=== PATIENT | male | born 1980 | race Two or more races ===

== ENCOUNTER 2018-03-14 20:02 | Inpatient (IN) | payer OTHER ==
[~2018-03-14] VITALS: Ht 185.4 cm; Wt 101.0 kg
[2018-03-14] MEDS ORDERED: ETOMIDATE (2MG/ML) 20ML VIAL IV ONE (20:30)
[2018-03-14] MEDS ORDERED: LIDOCAINE 1% (LOCAL ANESTH.) PF 5ml SDV ID ONE (21:00)
[2018-03-14] MEDS ORDERED: NEOMYCIN-BACITRACIN-POLYM UNITDOSE PKG TOP OINT TOP ONE (21:00)
[2018-03-14] MEDS ORDERED: ONDANSETRON HCL 4 MG/2 ML VIAL IV ONE ×2 (21:15→23:30)
[2018-03-14] MEDS ORDERED: HYDROmorphone HCL 2 MG/ML VL IV ONE ×2 (21:15→23:30)
[2018-03-14 22:16] LABS: Basophils # (auto) 0 uL; Basophils % (auto) 0.1 % (0.0-2.0); Eosinophils # (auto) 0 uL; Hematocrit 42.7 % (41.0-53.0); Hemoglobin 14.5 g/dL (13.5-17.5); Lymphocytes # (auto) 0.7 uL; Lymphocytes % (auto) 5.2 % (10.0-50.0); Mean Corpuscular Hemoglobin 31.9 pg (28.0-32.0); Mean Corpuscular Volume 93.9 fL (80.0-100.0); Monocytes # (auto) 0.8 uL; Monocytes % (auto) 5.9 % (0.0-12.0); Neutrophils # (auto) 12.7 uL; Neutrophils % (auto) 88.8 % (37.0-80.0); Platelet Count (auto) 236 10^3/uL (140-450); Red Blood Cells 4.54 10^6/uL (4.5-5.90); Red Cell Distribution Width 12.9 % (11.8-14.3); White Blood Cell 14.3 10^3/uL (4.4-10.8)
[2018-03-14 22:32] LABS: INR 0.99 (0.9-1.15); Prothrombin Time 10.6 sec (9.27-12.13)
[2018-03-14 22:33] LABS: BUN/Creatinine Ratio 9.3; Calcium 8.3 mg/dL (8.5-10.1); Potassium 3.8 mmol/L (3.5-5.1)
[2018-03-15] MEDS ORDERED: ACETAMINOPHEN 500 MG TAB PO PRN (01:30)
[2018-03-15] MEDS ORDERED: ONDANSETRON HCL 4 MG/2 ML VIAL IV PRN (01:30)
[2018-03-15 02:11] VITALS: BP 124/73
[2018-03-15] MEDS: MORPHINE SULFATE 4 MG/ML SYR/VIAL IV PRN ×3 (02:26→10:39)
[2018-03-15] MEDS ORDERED: HYDR-4683 PO (03:15)
[2018-03-15] MEDS: HYDROcodone-ACET 5/325MG TAB PO PRN ×5 (04:16→23:37)
[2018-03-15 05:00] VITALS: BP 124/73
[2018-03-15 07:43] LABS: Urine Bacteria NONE SEEN /hpf (None Seen); Urine Blood Negative /uL (Negative); Urine Hyaline Cast FEW /lpf (0 - 2); Urine Mucus FEW (None Seen); Urine Specific Gravity 1.024 (1.001-1.035); Urine WBC 3 /hpf (0 - 3)
[2018-03-15 07:57] LABS: Amphetamine Screen, Urine POSITIVE (NEGATIVE); Barbiturate Scree,Urine NEGATIVE (NEGATIVE); Benzodiazephine Screen, Urine NEGATIVE (NEGATIVE); Cannabinoid Screen, Urine NEGATIVE (NEGATIVE); Cocaine Screen, Urine NEGATIVE (NEGATIVE); Opiate Scree,Urine POSITIVE (NEGATIVE); Phencyclidine Screen, Urine NEGATIVE (NEGATIVE)
[2018-03-15 08:39] LABS: Basophils # (auto) 0 uL; Basophils % (auto) 0.1 % (0.0-2.0); Eosinophils # (auto) 0 uL; Eosinophils % (auto) 0.2 % (0.0-7.0); Hematocrit 37.6 % (41.0-53.0); Lymphocytes # (auto) 0.8 uL; Lymphocytes % (auto) 11.4 % (10.0-50.0); Mean Corpuscular Hemoglobin 32.5 pg (28.0-32.0); Mean Corpuscular Hgb Conc. 34.5 g/dL (32.0-36.0); Mean Corpuscular Volume 94.2 fL (80.0-100.0); Monocytes # (auto) 0.9 uL; Monocytes % (auto) 12.4 % (0.0-12.0); Neutrophils # (auto) 5.4 uL; Neutrophils % (auto) 75.9 % (37.0-80.0); Platelet Count (auto) 183 10^3/uL (140-450); Red Blood Cells 3.99 10^6/uL (4.5-5.90); Red Cell Distribution Width 12.9 % (11.8-14.3); White Blood Cell 7.1 10^3/uL (4.4-10.8)
[2018-03-15 08:59] LABS: BUN/Creatinine Ratio 13.5; Potassium 4.2 mmol/L (3.5-5.1)
[2018-03-15 09:00] VITALS: BP 128/80
[2018-03-15] MEDS: D5W/SOD CHL 0.45%/KCL 20MEQ 1,000 ML IV SCH ×2 (12:30→21:26)
[2018-03-15] MEDS: HYDROmorphone HCL 2 MG/ML VL IV PRN ×3 (12:48→21:22)
[2018-03-15 13:00] VITALS: BP 134/79
[2018-03-15] MEDS: ceFAZolin 1GM/50ML 50 ML IV SCH ×2 (14:00→21:26)
[2018-03-15 17:00] VITALS: BP 127/85
[2018-03-15 22:00] VITALS: BP 135/84
[2018-03-16] MEDS: HYDROmorphone HCL 2 MG/ML VL IV PRN ×7 (01:31→21:57)
[2018-03-16] MEDS: HYDROcodone-ACET 5/325MG TAB PO PRN ×2 (03:46→08:40)
[2018-03-16 04:50] VITALS: BP 144/82
[2018-03-16] MEDS: ceFAZolin 1GM/50ML 50 ML IV SCH ×3 (07:20→22:01)
[2018-03-16] MEDS: D5W/SOD CHL 0.45%/KCL 20MEQ 1,000 ML IV SCH ×2 (08:30→18:09)
[2018-03-16 09:00] VITALS: BP 131/87
[2018-03-16] MEDS ORDERED: HYDROcodone-ACET 10/325MG TAB PO ONE (10:00)
[2018-03-16] MEDS: HYDROcodone-ACET 10/325MG TAB PO PRN ×3 (12:15→19:53)
[2018-03-16 13:00] VITALS: BP 147/87
[2018-03-16 17:00] VITALS: BP 139/78
[2018-03-16 22:00] VITALS: BP 136/83
[2018-03-17] MEDS: HYDROcodone-ACET 10/325MG TAB PO PRN ×5 (00:24→19:00)
[2018-03-17] MEDS: HYDROmorphone HCL 2 MG/ML VL IV PRN ×4 (02:09→17:38)
[2018-03-17] MEDS: D5W/SOD CHL 0.45%/KCL 20MEQ 1,000 ML IV SCH ×2 (02:28→06:10)
[2018-03-17 05:27] VITALS: BP 151/91
[2018-03-17] MEDS: ceFAZolin 1GM/50ML 50 ML IV SCH ×2 (05:53→14:15)
[2018-03-17 09:00] VITALS: BP 133/85
[2018-03-17] MEDS ORDERED: DOCUSATE SOD 100 MG CAP PO PRN (10:30)
[2018-03-17 13:00] VITALS: BP 136/86
[2018-03-17 17:00] VITALS: BP 119/82
[2018-03-17 18:03] VITALS: BP 119/82
== END 2018-03-17 20:00 | disposition short-term general hospital (02) | DRG 342 ==
LOC: ER 20:02 → OVERFLOW 20:03 → CENTRAL 03-15 02:15
PROVIDERS: ADMIT Nurse Practitioner Family; ATTEND Internal Medicine
PROC: 0HQLXZZ Repair Left Lower Leg Skin, External Approach (ICD-10-PCS; principal; 2018-03-14)
DX: S42.352A Displaced comminuted fracture of shaft of humerus, left arm, initial encounter for closed fracture (principal); S81.812A Laceration without foreign body, left lower leg, initial encounter; F15.10 Other stimulant abuse, uncomplicated; F15.19 Other stimulant abuse with unspecified stimulant-induced disorder; S43.005A Unspecified dislocation of left shoulder joint, initial encounter; Y93.01 Activity, walking, marching and hiking; S50.312A Abrasion of left elbow, initial encounter; V03.99XA Pedestrian with other conveyance injured in collision with car, pick-up truck or van, unspecified whether traffic or nontraffic accident, initial encounter; Y92.488 Other paved roadways as the place of occurrence of the external cause; Y99.8 Other external cause status
CPT/HCPCS: 12002; 24505; 36415; 70450; 72125; 73020; 73070; 80048; 80307; 81001; 85025; 85610; 85730; 94761; 96374; 96375; J0690; J2405

== ENCOUNTER 2018-04-01 13:42 | Emergency (ER) | payer OTHER ==
[~2018-04-01] VITALS: Ht 185.4 cm; Wt 90.7 kg
[~2018-04-01 13:42] MED LIST: HYDR-4683 PO
[2018-04-01 13:49] VITALS: BP 140/90
== END 2018-04-01 16:33 | disposition home or self-care (01) ==
LOC: ER 13:42
DX: G89.18 Other acute postprocedural pain (principal); M79.602 Pain in left arm; Z76.0 Encounter for issue of repeat prescription